=== PATIENT | male | born 1955 | race African-American/Black ===

== ENCOUNTER → 2018-12-25 | Day surgery (SDC) | payer MEDICARE, MEDICAID ==
[~2018-12-25] MED LIST: ASPI-1393 PO; CHOL100044 GT; CHOL100044 PO; IBUP-2030 PO; LIDOCAINE HCL 1% 20ML VIAL (Pyxis) INJ ONE; METF-414 PO; SODIUM BICARBONATE 4% (2.4MEQ) 5ML VIAL IV ONE; TRAM50TA PO
== END | disposition home or self-care (01) ==
LOC: RAD 08:56
PROVIDERS: ATTEND Internal Medicine Endocrinology, Diabetes & Metabolism
DX: E04.1 Nontoxic single thyroid nodule (principal); F17.210 Nicotine dependence, cigarettes, uncomplicated; Z79.899 Other long term (current) drug therapy; Z79.82 Long term (current) use of aspirin; Z79.84 Long term (current) use of oral hypoglycemic drugs; Z82.49 Family history of ischemic heart disease and other diseases of the circulatory system; Z83.3 Family history of diabetes mellitus
CPT/HCPCS: 10005; 88172; 88173; J3490